=== PATIENT | female | born 1940 | race Caucasian/White ===

== ENCOUNTER → 2016-07-01 | Outpatient (REF) ==
[2016-07-01 15:36] LABS: THYROID STIMULATING HORMONE 1.99 uIU/mL (0.465-4.680)
== END ==
LOC: ZLAB.WCH 14:43
PROVIDERS: Internal Medicine
DX: Z01.89 Encounter for other specified special examinations (principal)

== ENCOUNTER → 2017-09-23 | Outpatient (REF) ==
[2017-09-23 18:50] LABS: THYROID STIMULATING HORMONE 2.09 uIU/mL (0.465-4.680)
== END ==
LOC: ZLAB.WCH 18:08
PROVIDERS: Internal Medicine
DX: Z01.89 Encounter for other specified special examinations (principal)

== ENCOUNTER 2023-12-15 20:32 | Emergency (ER) | payer MEDICARE, BC ==
[~2023-12-15] VITALS: Ht 152.4 cm; Wt 63.6 kg
[~2023-12-15 20:32] MED LIST: ALBUTEROL0.83 MG/ML IH; ASPIRIN E.C. 8181 MG PO; COLACE 100100 MG/CAP PO; FOLIC ACID 11 MG/TA1 PO; FOSAMAX 70MG TA70 MG PO; KLONOPIN 0.5MG0.5 MG PO; MUCINEX 60600 MG/TA1 PO; MULTIVITAMIN200 MCG PO; OSCAL 500 TAB500 MG PO; PERFOROMIS20 MCG/2 M IH; PRILOSEC 20MG20 MG PO; PULMICORT0.5 MG/2 M IH; SLOW-MAG71.5 MG PO; TOPROL XL 25MG25 MG PO; TREXALL5 MG PO; ULTRAM 50MG TAB50 MG PO; VITAMIN B11000 MCG/M IM; VITAMIN D 400400 IU PO; ZYRTEC5 MG PO
[2023-12-15 20:35] VITALS: TEMP 98.3
[2023-12-15] MEDS ORDERED: fentaNYL 50 MCG/ML 2 ML VIAL IV ONE (21:00)
[2023-12-15] MEDS ORDERED: Ondansetron 4 MG/2 ML VIAL IV ONE (21:45)
[2023-12-15 21:48] LABS: BASO % 0.3 % (0.0-2.0); EOS % 0.3 % (0.0-4.0); GRAN # 10.5 K/mm3 (1.4-6.5); GRAN % 89.7 % (42.2-75.2); LYMPH # 0.8 K/mm3 (1.2-3.4); MEAN CELL VOLUME 96 fl (80.0-100.0); MEAN CORPUSCULAR HGB CONC 31 g/dl (33.0-37.0); MEAN PLATELET VOLUME 10.4 fl (7.4-10.4); MONO # 0.2 K/mm3 (0.1-0.6); PLATELET COUNT 183 K/mm3 (130-400); RED BLOOD COUNT 3.38 M/mm3 (4.10-5.30); REDCELL DISTRIBUTION WIDTH-CV 16.4 % (11.5-14.5)
[2023-12-15 21:49] LABS: HEMATOCRIT 32.4 % (37.0-47.0); HEMOGLOBIN 9.9 g/dl (12.5-16.0); MEAN CORPUSCULAR HEMOGLOBIN 29 pg (27-31)
[2023-12-15 22:05] LABS: ALBUMIN 3.7 g/dL (3.4-4.8); BILIRUBIN,TOTAL 0.4 mg/dL (0.2-1.2); CREATININE, serum 1.22 mg/dL (0.57-1.11); MAGNESIUM 1.7 mg/dL (1.6-2.6); POTASSIUM 3.8 mEq/L (3.5-4.5); TOTAL PROTEIN 7.4 g/dl (6.2-8.1)
[2023-12-15 22:11] LABS: TROPONIN-I 0.012 ng/mL (0.00-0.033)
[2023-12-15] MEDS ORDERED: levETIRAcetam 1,000 MG in Syringe 1 EACH IV ONE (22:15)
[2023-12-15 22:19] LABS: PROTHROMBIN TIME 11.1 SECONDS (9.7-12.8)
[2023-12-15] MEDS ORDERED: niCARdipine 200 ML IV ONE (22:30)
[2023-12-15 22:42] LABS: COLLECTION METHOD CLEAN CATCH
[2023-12-15 22:48] LABS: URINE APPEARANCE CLOUDY (CLEAR/HAZY); URINE BLOOD 1+ (NEGATIVE); URINE COLOR YELLOW (YELLOW); URINE GLUCOSE NEGATIVE (NEGATIVE); URINE KETONE NEGATIVE (NEGATIVE); URINE NITRATE POSITIVE (NEGATIVE); URINE PROTEIN(semi-quant) 1+ (NEGATIVE); URINE UROBILINOGEN 0.2 E.U/dL (0.2-1.0)
[2023-12-15 23:09] LABS: URINE WBC >50 /hpf (0-2)
[2023-12-15 23:10] LABS: URINE BACTERIA MODERATE /hpf (NONE SEEN)
[2023-12-15] MEDS ORDERED: Morphine 4 MG/ML VIAL IV ONE (23:15)
[2023-12-15] MEDS ORDERED: cefTRIAXone 1 G in Water For Injection,Sterile 10 ML IV ONE (23:45)
[2023-12-15] MEDS ORDERED: Nitrofurantoin (Mono/Macro) 100 MG CAP PO ONE (23:45)
[2023-12-16 00:30] VITALS: BP 122/65; PULSE 77
== END 2023-12-16 00:30 | disposition short-term general hospital (02) ==
LOC: COL.ER 20:32
PROVIDERS: Emergency Medicine
DX: S06.5XAA Traumatic subdural hemorrhage with loss of consciousness status unknown, initial encounter (principal); Z88.0 Allergy status to penicillin; Z88.2 Allergy status to sulfonamides; Z79.82 Long term (current) use of aspirin; W18.30XA Fall on same level, unspecified, initial encounter; Y93.H2 Activity, gardening and landscaping
CPT/HCPCS: J0696; J1953; J2270; J2404; J2405; J3010